=== PATIENT | male | born 1995 | race Two or more races ===

== ENCOUNTER 2020-03-23 08:12 | Outpatient (CLI) | payer OTHER | END 2020-03-23 08:15 | disposition home or self-care (01) | LOC: RAD 08:12 | PROVIDERS: ATTEND Family Medicine | DX: M94.0 Chondrocostal junction syndrome [Tietze] (principal) ==

== ENCOUNTER 2020-10-15 09:26 | Outpatient (CLI) | payer OTHER | END 2020-10-15 09:35 | disposition home or self-care (01) | LOC: TOM 09:26 | PROVIDERS: ATTEND Family Medicine | DX: G44.89 Other headache syndrome (principal) ==